=== PATIENT | female | born 1970 | race Caucasian/White ===

== ENCOUNTER → 2024-08-11 14:43 | Outpatient (REF) | payer OTHER, SELFPAY | LOC: HWRAD 14:43 | PROVIDERS: ATTENDING PHYSICIAN Family Medicine | DX: E04.1 Nontoxic single thyroid nodule (principal) | CPT/HCPCS: 76536 ==

== ENCOUNTER → 2024-09-07 12:08 | Outpatient (REF) | payer OTHER, SELFPAY | LOC: RAD 12:08 | PROVIDERS: ATTENDING PHYSICIAN Family Medicine | DX: R59.1 Generalized enlarged lymph nodes (principal) | CPT/HCPCS: 74177; Q9967 ==

== ENCOUNTER → 2024-10-25 13:28 | Outpatient (REF) | payer OTHER, SELFPAY ==
[2024-10-25 13:47] VITALS: BP 122/82; BP_SYST 72
== END ==
LOC: RADI 13:28
PROVIDERS: ATTENDING PHYSICIAN Otolaryngology; FAMILY PHYSICIAN Family Medicine
DX: E04.1 Nontoxic single thyroid nodule (principal)
CPT/HCPCS: 10005; 88173

== ENCOUNTER 2024-10-29 12:05 | Emergency (ER) | payer OTHER, SELFPAY ==
[2024-10-29 12:08] VITALS: BP 146/100
[2024-10-29 13:05] VITALS: BMI 35.8
--- NOTE | 2024-10-29 13:08 | ED.GENMED ---
History of Present Illness
General
Chief Complaint: Abdominal Pain
Source: patient
Time Seen by Provider: 10/29/24 12:48
History of Present Illness
History of Present Illness:
54-year-old female with past medical history of diverticulitis presenting to the emergency department for evaluation of 2 days of left lower quadrant abdominal discomfort accompanied with no other associated symptoms including fevers, chills,
rigors, nausea or vomiting or urinary symptoms. Patient did note some loose stool associated with the pain. She did not attempt anything for her symptoms prior to arrival. He does state while it is been a while from her last diverticulitis
flareup she does believe the symptoms are similar. Patient last had a colonoscopy about 5 years ago where she did have a couple of polyps removed and knows that she is due for repeat colonoscopy in the near future. Social history noncontributory.
Surgical history noncontributory.
Past History
Past History
ED Past Medical History: Psychiatric (PTSD, depression) and Other (lymphedema)
ED Past Surgical History: Tonsilectomy
Social History
Tobacco: Non-smoker
Alcohol: None
Drug: None
Personal:
Living: with family
Review of Systems
Review of Systems
All Other Systems: ROS reviewed and negative except as documented in HPI and ROS
Phy Exam
Physical Exam
Physical Exam:
GENERAL: Alert , in no apparent distress
EYE: clear conjunctiva b/l
HEAD: NCAT
ENT: mmm.
CARDIAC: Regular rate and rhythm .
LUNGS: Clear breath sounds bilaterally, no acute respiratory distress, no wheezes/rales/rhonchi
ABDOMEN: Soft, left lower quadrant tenderness, no r/g, no cvat, negative Schroeder sign, no tenderness at McBurney's point
NEUROLOGICAL: Alert and oriented
SKIN: Warm and dry, skin intact.
MUSCULOSKELETAL: well perfused.
PSYCH: Normal and appropriate interaction.
Scores
Heart Failure Risk
Heart Failure Risk Score: Not Applicable
Heart Score for Chest Pain Patients
STEMI patient?: Not applicable
Withdrawal Assessment of Alcohol
Withdrawal Assessment Completed?: Not applicable
Course
Orders/Labs/Results
Orders:
Orders
10/29/24 12:49
CT Abd/pelvis W Iv Cont Urgent
Comment:
Reason For Exam: LLQ pain, hx diverticulitis
10/29/24 13:06
Complete Blood Count/With Diff Urgent
Comprehensive Metabolic Panel Urgent
Lipase Urgent
10/29/24 13:24
Urinalysis Reflex To Culture Urgent
Date Specimen was Collected: 10/29/24
Time Specimen was Collected: 13:23
Urine Microscopic Reflex Cult Urgent
Urine Culture Urgent
MEGAN Source: U
Specimen Description:
Date Specimen was Collected: 10/29/24
Time Specimen was Collected: 13:23
10/29/24 15:31
Ciprofloxacin HCl [Cipro] 500 mg PO NOW STA
MetroNIDAZOLE [Flagyl] 500 mg PO NOW STA
Abnormal Lab Results
10/29/24 10/29/24
13:06 13:24
Absolute Monos (auto) 0.7 H 10^3/uL
(0.1-0.6)
Leukocyte Esterase Rfl 1+ A
(Negative)
Urine Bacteria (Reflex) Few A
(Negative)
10/29/24 13:06
10/29/24 13:06
Vital Signs
Initial and Last Documented VS:
Initial Vital Signs
Temp Pulse Resp BP Pulse Ox
98.4 F 98 22 146/100 99
10/29/24 12:08 10/29/24 12:08 10/29/24 12:08 10/29/24 12:08 10/29/24 12:08
Last Documented Vital Signs
Temp Pulse Resp BP Pulse Ox
98.4 F 80 16 280/81 94
10/29/24 12:08 10/29/24 15:00 10/29/24 14:00 10/29/24 15:00 10/29/24 15:00
MDM/Problems Addressed
Differential Diagnosis Includes:
Diverticulitis
Colitis
C. difficile colitis/infectious diarrhea
Less concern for appendicitis or other surgical complication
Renal/ureteral colic
Urinary tract infection
MDM/Problems Addressed:
54-year-old female presenting to the emergency department for evaluation of left lower quadrant abdominal pain and diarrhea for the last 2 days. Pain currently tolerable, did not take anything for pain prior to arrival. Patient stating pain does
feel similar to previous episodes of diverticulitis. Will check labs, urine and CT imaging. Patient declining anything for symptoms at this time.
*Radiology
Radiology exam reviewed: radiology read reviewed
*Pulse Oximetry
SaO2: 99
Oxygen Mode of Delivery: Room air
Patient hypoxic: no
*Critical Care Note
Total Time (30-74mins, 75-104mins- exclusive of procedures): Not Applicable
Patient Management
Escalation/DeEscalation of care consider admission/obs:
Patient CT scan shows acute uncomplicated sigmoid diverticulitis. No abscess or perforation. Patient states that while she does have pain still she does not want anything for pain here. Will treat with Cipro and Flagyl, only will treat with
penicillin secondary to allergy. She will follow-up with primary care provider as well as GI. She is aware of return precautions to the emergency department
ED Attending Note
-
Portions of this chart may have been created with voice recognition software.� Occasional wrong word or��sound alike� substitutions may have occurred due to the inherent limitations of voice recognition software.
Discharge Plan
Departure
Patient Disposition: Home (Routine Discharge)
Date of Disposition: 10/29/24
Time of Disposition: 15:29
Patient with high blood pressure during this ER visit?: Yes
Discharge Problem:
Diverticulitis
Instructions: Diverticulitis (DC)
Prescriptions:
New
ciprofloxacin HCl [Cipro] 500 mg tablet
500 mg PO BID Qty: 19 0RF
metronidazole 500 mg tablet
500 mg PO BID Qty: 19 0RF
No Action
aspirin 81 mg Tablet
81 mg PO DAILY
Referrals:
Schuyler Muniz DO [Family Provider, Family Practice]
Interventions
Interventions:
*Risk Screen - Suicide Last Done: 10/29/24 13:05
*General Assessment Last Done: 10/29/24 13:05
*Neglect/Abuse Screening Last Done: 10/29/24 13:05
*ED- Fall Risk Assessment Last Done: 10/29/24 13:05
*ED COVID-19 Vaccine History Last Done: 10/29/24 13:05
*Nursing Disposition Last Done: 10/29/24 15:48
NM-Hgmbhp-Cxrtuzvmcw Assessment Last Done: 10/29/24 13:05
Discharge Date and Time
Discharge Date/Time: 10/29/24 15:50
Print Language: MOSOTHO
[2024-10-29 13:15] VITALS: BP 130/86
--- NOTE | 2024-10-29 13:15 | EDRN ---
Pt in BR attempting urine spec at this time.
[2024-10-29 13:17] LABS: Hematocrit 40.8 % (37.0-47.0); Hemoglobin 13.8 g/dL (12.0-16.0); Mean Corp Hgb Conc. 33.8 g/dL (33.0-37.0); Mean Corpuscular Volume 84.1 fL (81.0-99.0); Nucleated Red Blood Cells % 0 %; Platelet Count 240 10^3/uL (130-400); Red Cell Dist. Width 12.6 % (11.5-14.5)
[2024-10-29 13:35] LABS: Urine Character Clear (Clear)
[2024-10-29 13:38] LABS: ALT (SGPT) 21 U/L (0-35); AST (SGOT) 21 U/L (14-36); Albumin 4.4 g/dl (3.5-5.0); Alkaline Phosphatase 47 U/L (38-126); Blood Urea Nitrogen 13 mg/dl (7-17); Calcium 9.0 mg/dl (8.4-10.2); Carbon Dioxide 29 mmol/L (22-30); Chloride 104 mmol/L (98-107); Estimated Creatinine Clearance 73 ml/min; Glucose 93 mg/dl (70-99); Lipase 103 U/L (23-300); Potassium 4.2 mmol/L (3.5-5.1); Sodium 140 mmol/L (135-145); Total Protein 7.0 g/dl (6.3-8.2); eGFR > 60.00
[2024-10-29 13:45] LABS: Urine Red Blood Cell 0-2 /HPF (0-2)
[2024-10-29 15:00] VITALS: BP 128/81
--- NOTE | 2024-10-29 15:29 | EDRN ---
Janel Wilkinson PA in to speak w/ pt at this time.
[2024-10-29] MEDS: FLAGYL 500 MG PO (15:47)
[2024-10-29] MEDS: CIPRO 500 MG PO (15:47)
== END 2024-10-29 15:50 | disposition home or self-care (01) ==
LOC: EMR 12:05
PROVIDERS: Physician Assistant Medical; EMERGENCY PHYSICIAN Emergency Medicine; FAMILY PHYSICIAN Family Medicine
DX: K57.32 Diverticulitis of large intestine without perforation or abscess without bleeding (principal); F43.10 Post-traumatic stress disorder, unspecified; F32.A Depression, unspecified; Z88.0 Allergy status to penicillin; Z86.0100 Personal history of colon polyps, unspecified
CPT/HCPCS: 99284; 74177; 80053; 81003; 81015; 83690; 85025; 87077; 87086; 87147; Q9967